=== PATIENT | male | born 1985 | race Two or more races ===

== ENCOUNTER 2025-01-14 19:30 | Emergency (ER) | payer OTHER ==
[~2025-01-14] VITALS: Ht 175.3 cm; Wt 79.4 kg
[2025-01-14 19:56] VITALS: BP 133/77; TEMP 98; O2SAT 99
[2025-01-14] MEDS ORDERED: AMOX-430 PO (20:07)
== END 2025-01-14 20:32 | disposition home or self-care (01) ==
LOC: ER 19:35
DX: S81.832A Puncture wound without foreign body, left lower leg, initial encounter (principal); Z88.6 Allergy status to analgesic agent; W54.0XXA Bitten by dog, initial encounter; Y93.89 Activity, other specified; Y92.89 Other specified places as the place of occurrence of the external cause; Y99.8 Other external cause status